=== PATIENT | female | born 1990 | race Caucasian/White ===

== ENCOUNTER 2017-05-17 20:30 | Emergency (ER) | payer BC, OTHER ==
[2017-05-17] MEDS ORDERED: Ketorolac 60 MG/2 ML SDV IM ONE (20:46)
[2017-05-17] MEDS ORDERED: Ondansetron 4 MG/2 ML SDV IM ONE (20:46)
[2017-05-17 20:48] VITALS: BP 126/70
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
== END 2017-05-17 21:44 | disposition home or self-care (01) ==
LOC: MW.ED 20:30
DX: G89.29 Other chronic pain (principal); M54.6 Pain in thoracic spine; F17.210 Nicotine dependence, cigarettes, uncomplicated; Z88.8 Allergy status to other drugs, medicaments and biological substances
CPT/HCPCS: 80305; 81001; 81025; 96372; 99283; J1885; J2405; 99282

== ENCOUNTER 2018-02-24 16:19 | Emergency (ER) | payer BC ==
[2018-02-24 16:34] VITALS: BP 121/71
--- NOTE | 2018-02-24 16:35 | EDM.PDOC ---
ED HPI GENERAL MEDICAL PROBLEM - General Chief Complaint: Abdominal Pain Stated Complaint: ABD PAIN Time Seen by Provider: 02/24/18 16:30 - History of Present Illness INITIAL COMMENTS - FREE TEXT/NARRATIVE: HISTORY AND PHYSICAL: History of present illness: Patient states 27-year-old white female history of chronic intermittent back pain who sees a chiropractor was a fairly clinic earlier and had a urinalysis that demonstrated a early infection and a negative test she left there without treatment and came here per their recommendation for further evaluation there's been no vaginal discharge or irregular bleeding no trauma no other complaints. Her abdominal pain is poorly localized and without associated fever or chills Review of systems: As per history of present illness and below otherwise all systems reviewed and negative. Past medical history: As per history of present illness and as reviewed below otherwise noncontributory. Surgical history: As per history of present illness and as reviewed below otherwise noncontributory. Social history: No reported history of drug or alcohol abuse. Family history: As per history of present illness and as reviewed below otherwise noncontributory. Physical exam: HEENT: Atraumatic, normocephalic, pupils reactive, negative for conjunctival pallor or scleral icterus, mucous membranes moist, throat clear, neck supple, nontender, trachea midline. Lungs: Clear to auscultation, breath sounds equal bilaterally, chest nontender. Heart: S1S2, regular, negative for clicks, rubs, or JVD. Abdomen: Soft, nondistended, no localized tenderness Negative for masses or hepatosplenomegaly. Negative for costovertebral tenderness. Pelvis: Stable nontender. Genitourinary: Deferred. Rectal: Deferred. Extremities: Atraumatic, negative for cords or calf pain. Neurovascular unremarkable. Neuro: Awake, alert, oriented. Cranial nerves II through XII unremarkable. Cerebellum unremarkable. Motor and sensory unremarkable throughout. Exam nonfocal. Diagnostics: CBC CMP UA hCG CT abdomen and pelvis Therapeutics: None Impression: #1 nonspecific abdominal pain #2 history of chronic back pain Definitive disposition and diagnosis as appropriate pending reevaluation and review of above. - Related Data Allergies Allergy/AdvReac Type Severity Reaction Status Date / Time sertraline [From Zoloft] Allergy Rash Verified 02/24/18 16:35 Home Meds: Home Meds Doxycycline [Doxycycline Hyclate] 50 mg PO Q12HR 02/24/18 [History] Past Medical History Musculoskeletal History: Reports: Back Pain, Chronic Social & Family History - Caffeine Use Caffeine Use: Reports: Coffee, Energy Drinks, Soda, Tea ED ROS GENERAL - Review of Systems Review Of Systems: ROS reveals no pertinent complaints other than HPI. ED EXAM, GENERAL - Physical Exam Exam: See Below (See dictation) Course - Vital Signs Last Recorded V/S: Last Vital Signs Temp 37.1 C 02/24/18 16:29 Pulse 87 02/24/18 16:29 Resp 16 02/24/18 16:29 BP 121/71 02/24/18 16:29 Pulse Ox 95 02/24/18 16:29 - Orders/Labs/Meds Orders: Active Orders 24 hr Category Date Time Status Abdomen Pelvis w wo Cont [CT] Stat Exams 02/24/18 16:37 Taken HCG QUALITATIVE,URINE [URCHEM] Stat Lab 02/24/18 16:42 Ordered HEPATITIS PANEL (4) [REF] Routine Lab 02/24/18 16:54 Received LIPASE [CHEM] Stat Lab 02/24/18 18:46 Ordered UA W/MICROSCOPIC [URIN] Stat Lab 02/24/18 16:42 Ordered HYDROmorphone [Dilaudid] Med 02/24/18 18:46 Once 1 mg IVPUSH ONETIME ONE Ondansetron [Zofran] Med 02/24/18 18:46 Once 4 mg IVPUSH ONETIME ONE Sodium Chloride 0.9% [Normal Saline] 1,000 ml Med 02/24/18 18:26 Active IV STAT Medication Orders Sodium Chloride (Normal Saline) 1,000 mls @ 999 mls/hr IV STAT ONE Stop: 02/24/18 19:26 Last Admin: 02/24/18 18:32 Dose: 999 mls/hr Labs: Laboratory Tests 02/24/18 02/24/18 02/24/18 Range/Units 16:42 16:42 16:54 WBC 5.11 (4.0-11.0) K/uL RBC 4.72 (4.30-5.90) M/uL Hgb 14.8 (12.0-16.0) g/dL Hct 42.3 (36.0-46.0) % MCV 89.6 (80.0-98.0) fL MCH 31.4 (27.0-32.0) pg MCHC 35.0 (31.0-37.0) g/dL RDW Std Deviation 40.7 (28.0-62.0) fl RDW Coeff of Tasneem 13 (11.0-15.0) % Plt Count 222 (150-400) K/uL MPV 9.80 (7.40-12.00) fL Neut % (Auto) 57.0 (48.0-80.0) % Lymph % (Auto) 30.7 (16.0-40.0) % [place] % (Auto) 7.6 (0.0-15.0) % Eos % (Auto) 4.3 (0.0-7.0) % Baso % (Auto) 0.4 (0.0-1.5) % Neut # (Auto) 2.9 (1.4-5.7) K/uL Lymph # (Auto) 1.6 (0.6-2.4) K/uL [place] # (Auto) 0.4 (0.0-0.8) K/uL Eos # (Auto) 0.2 (0.0-0.7) K/uL Baso # (Auto) 0.0 (0.0-0.1) K/uL Nucleated RBC % 0.0 /100WBC Nucleated RBCs # 0 K/uL Sodium (136-145) mmol/L Potassium (3.5-5.1) mmol/L Chloride (98-107) mmol/L Carbon Dioxide (21.0-32.0) mmol/L BUN (7.0-18.0) mg/dL Creatinine (0.6-1.0) mg/dL Est Cr Clr Drug Dosing mL/min Estimated GFR (MDRD) ml/min Glucose (74-106) mg/dL Calcium (8.5-10.1) mg/dL Total Bilirubin (0.2-1.0) mg/dL AST (15-37) IU/L ALT (14-63) IU/L Alkaline Phosphatase (46-116) U/L Total Protein (6.4-8.2) g/dL Albumin (3.4-5.0) g/dL Globulin (2.0-3.5) g/dL Albumin/Globulin Ratio (1.3-2.8) Urine Color YELLOW Urine Appearance CLEAR Urine pH 5.5 (5.0-8.0) Ur Specific [place] 1.025 (1.001-1.035) Urine Protein 30 (NEGATIVE) mg/dL Urine Glucose (UA) NEGATIVE (NEGATIVE) mg/dL Urine Ketones TRACE H (NEGATIVE) mg/dL Urine Occult Blood NEGATIVE (NEGATIVE) Urine Nitrite POSITIVE H (NEGATIVE) Urine Bilirubin LARGE H (NEGATIVE) Urine Ictotest POSITIVE Urine Urobilinogen 2.0 H (<2.0) EU/dL Ur Leukocyte Esterase TRACE (NEGATIVE) Urine RBC 0-1 (0-2/HPF) Urine WBC 1-2 (0-5/HPF) Ur Epithelial Cells OCCASIONAL (NONE-FEW) Urine Bacteria FEW (NEGATIVE) Urine HCG, Qual NEGATIVE (NEGATIVE) 02/24/18 Range/Units 16:54 WBC (4.0-11.0) K/uL RBC (4.30-5.90) M/uL Hgb (12.0-16.0) g/dL Hct (36.0-46.0) % MCV (80.0-98.0) fL MCH (27.0-32.0) pg MCHC (31.0-37.0) g/dL RDW Std Deviation (28.0-62.0) fl RDW Coeff of Tasneem (11.0-15.0) % Plt Count (150-400) K/uL MPV (7.40-12.00) fL Neut % (Auto) (48.0-80.0) % Lymph % (Auto) (16.0-40.0) % [place] % (Auto) (0.0-15.0) % Eos % (Auto) (0.0-7.0) % Baso % (Auto) (0.0-1.5) % Neut # (Auto) (1.4-5.7) K/uL Lymph # (Auto) (0.6-2.4) K/uL [place] # (Auto) (0.0-0.8) K/uL Eos # (Auto) (0.0-0.7) K/uL Baso # (Auto) (0.0-0.1) K/uL Nucleated RBC % /100WBC Nucleated RBCs # K/uL Sodium 139 (136-145) mmol/L Potassium 3.9 (3.5-5.1) mmol/L Chloride 103 (98-107) mmol/L Carbon Dioxide 25.2 (21.0-32.0) mmol/L BUN 14 (7.0-18.0) mg/dL Creatinine 0.8 (0.6-1.0) mg/dL Est Cr Clr Drug Dosing 96.73 mL/min Estimated GFR (MDRD) > 60.0 ml/min Glucose 107 H (74-106) mg/dL Calcium 8.6 (8.5-10.1) mg/dL Total Bilirubin 3.3 H (0.2-1.0) mg/dL AST 814 H (15-37) IU/L ALT 1215 H (14-63) IU/L Alkaline Phosphatase 252 H (46-116) U/L Total Protein 7.3 (6.4-8.2) g/dL Albumin 4.0 (3.4-5.0) g/dL Globulin 3.3 (2.0-3.5) g/dL Albumin/Globulin Ratio 1.2 L (1.3-2.8) Urine Color Urine Appearance Urine pH (5.0-8.0) Ur Specific [place] (1.001-1.035) Urine Protein (NEGATIVE) mg/dL Urine Glucose (UA) (NEGATIVE) mg/dL Urine Ketones (NEGATIVE) mg/dL Urine Occult Blood (NEGATIVE) Urine Nitrite (NEGATIVE) Urine Bilirubin (NEGATIVE) Urine Ictotest Urine Urobilinogen (<2.0) EU/dL Ur Leukocyte Esterase (NEGATIVE) Urine RBC (0-2/HPF) Urine WBC (0-5/HPF) Ur Epithelial Cells (NONE-FEW) Urine Bacteria (NEGATIVE) Urine HCG, Qual (NEGATIVE) Meds: Medications Generic Name Dose Route Start Last Admin Trade Name Freq PRN Reason Stop Dose Admin Sodium Chloride 1,000 mls @ 999 mls/hr 02/24/18 18:26 02/24/18 18:32 Normal Saline IV 02/24/18 19:26 999 mls/hr STAT ONE Administration Discontinued Medications Generic Name Dose Route Start Last Admin Trade Name Freq PRN Reason Stop Dose Admin Iopamidol 100 ml 02/24/18 17:57 02/24/18 18:00 Isovue Multipack-370 (76%) IVPUSH 02/24/18 17:58 100 ml ONETIME STA Administration Departure - Departure Time of Disposition: 18:47 Disposition: Home, Self-Care 01 Condition: Good Clinical Impression: Pancreatitis, Abdominal pain, Elevated levels of transaminase & lactic acid dehydrogenase - Discharge Information Referrals: PCP,None [Primary Care Provider] - Forms: ED Department Discharge - My Orders Last 24 Hours: My Active Orders 02/24/18 16:37 Abdomen Pelvis w wo Cont [CT] Stat 02/24/18 16:42 HCG QUALITATIVE,URINE [URCHEM] Stat UA W/MICROSCOPIC [URIN] Stat 02/24/18 16:54 HEPATITIS PANEL (4) [REF] Routine 02/24/18 18:26 Sodium Chloride 0.9% [Normal Saline] 1,000 ml IV STAT 02/24/18 18:46 LIPASE [CHEM] Stat HYDROmorphone [Dilaudid] 1 mg IVPUSH ONETIME ONE Ondansetron [Zofran] 4 mg IVPUSH ONETIME ONE - Assessment/Plan Last 24 Hours: My Active Orders 02/24/18 16:37 Abdomen Pelvis w wo Cont [CT] Stat 02/24/18 16:42 HCG QUALITATIVE,URINE [URCHEM] Stat UA W/MICROSCOPIC [URIN] Stat 02/24/18 16:54 HEPATITIS PANEL (4) [REF] Routine 02/24/18 18:26 Sodium Chloride 0.9% [Normal Saline] 1,000 ml IV STAT 02/24/18 18:46 LIPASE [CHEM] Stat HYDROmorphone [Dilaudid] 1 mg IVPUSH ONETIME ONE Ondansetron [Zofran] 4 mg IVPUSH ONETIME ONE
[2018-02-24 17:36] LABS: CHLORIDE,CL 103 mmol/L (98-107); SODIUM,NA 139 mmol/L (136-145)
[2018-02-24] MEDS ORDERED: Iopamidol 755 MG/ML 500 ML Multipack Bottle IVPUSH STA (17:57)
[2018-02-24] MEDS ORDERED: Sodium Chloride 0.9% 1,000 ML IV ONE (18:26)
[2018-02-24] MEDS ORDERED: HYDROmorphone 2 MG/ML Syringe IVPUSH ONE (18:46)
[2018-02-24] MEDS ORDERED: Ondansetron 4 MG/2 ML SDV IVPUSH ONE (18:46)
[2018-02-24] MEDS ORDERED: HYDROmorphone 1 MG/ML Syringe ONE (18:55)
--- NOTE | 2018-02-27 10:46 | CT ---
EXAM DATE: 02/24/18 PATIENT'S AGE: 27 Patient: PATRICK GAITAN Facility: [place], [place] Site . Site : 1990 Study: CT Abdomen/Pelvis [id number]/8/2018 6:10:24 PM Ordering Physician: Ivette Thorpe Final Report: INDICATION: Pain and vomiting TECHNIQUE: CT abdomen and pelvis with and without contrast. COMPARISON: None FINDINGS: Lower chest: Unremarkable. Liver: Unremarkable. Spleen: Unremarkable. Pancreas: Peripancreatic fat stranding. Correlate with abnormal amylase and lipase. Gallbladder and bile ducts: Gallbladder is distended with sludge and possible stones with pericholecystic fluid. Correlate with right upper quadrant pain. Kidneys: Punctate nonobstructing calculus in the distal right kidney. No hydronephrosis. Adrenal glands: Unremarkable. GI tract: Unremarkable. Appendix is not definitively demonstrated. Vascular structures: Unremarkable. Lymph nodes: Unremarkable. The free fluid in the right pericolic gutter, right upper quadrant and pelvis. Oral or significant free fluid. Pelvic Organs: IUD identified in the endometrial canal. Bones: Unremarkable for age. IMPRESSION: Peripancreatic fat stranding. Correlate with abnormal amylase and lipase for pancreatitis. The gallbladder is distended with sludge and possible stones with adjacent fluid. Right upper quadrant asymmetry helpful to further characterize if clinically warranted. IUD identified in the endometrial canal. Punctate calculus in the distal right kidney. No evidence for hydronephrosis or hydroureter. Dictated by Torsten Severino MD @ 02/24/2018 6:44:16 PM Dictated by: Torsten Severino MD @ 02/24/2018 18:44:35 (Electronic Signature) Report Signed by Proxy. [facility]
== END 2018-02-24 19:57 | disposition home or self-care (01) ==
LOC: MW.ED 16:19
DX: K85.90 Acute pancreatitis without necrosis or infection, unspecified (principal); R74.0 Nonspecific elevation of levels of transaminase and lactic acid dehydrogenase [LDH]; Z79.899 Other long term (current) drug therapy; Z88.8 Allergy status to other drugs, medicaments and biological substances
CPT/HCPCS: 36415; 74178; 80053; 80074; 81001; 81025; 83690; 85025; 96361; 96374; 96375; 99284; J1170; J2405; J7040; Q9967; 99283

== ENCOUNTER 2018-03-08 12:46 | Emergency (ER) | payer BC ==
[2018-03-08] MEDS ORDERED: Sodium Chloride 0.9% 2.5 ML Syringe FLUSH PRN (13:03)
[2018-03-08] MEDS ORDERED: Morphine 2 MG/ML Syringe IVPUSH ONE (13:03)
[2018-03-08] MEDS ORDERED: Ondansetron 4 MG/2 ML SDV IVPUSH ONE (13:03)
[2018-03-08] MEDS ORDERED: Sodium Chloride 0.9% 10 ML Syringe FLUSH PRN (13:03)
--- NOTE | 2018-03-08 13:08 | EDM.PDOC ---
<Sanjana Yadav - Last Filed: 03/08/18 14:46> ED HPI GENERAL MEDICAL PROBLEM - General Chief Complaint: Back Pain or Injury Stated Complaint: BACK PAIN Time Seen by Provider: 03/08/18 13:04 Source of Information: Reports: Patient, Family History Limitations: Reports: No Limitations - History of Present Illness INITIAL COMMENTS - FREE TEXT/NARRATIVE: HISTORY AND PHYSICAL: []27-year-old female presenting with back pain similar to her pancreatitis pain History of Present Illness: []Patient had surgery one week ago with her gallbladder removed and stent placement. Surgeon was Dr. Ronaldo Farr , this marked [place] at [facility]. She has a follow-up appointment in one week . Patient took hydrocodone prior to coming/2 hours ago Patient did clean her whole house yesterday and was quite active Review of Systems: As per history of present illness and below otherwise all systems reviewed and negative. Past medical history: As per history of present illness and as reviewed below otherwise noncontributory. Surgical history: As per history of present illness and as reviewed below otherwise noncontributory. Social history: No reported history of drug or alcohol abuse. Family history: As per history of present illness and as reviewed below otherwise noncontributory. Physical exam: Alert and oriented female answering questions appropriately in full sentences without any shortness of breath nontoxic in appearance. HEENT: Atraumatic, normocehpalic, pupils reactive, negative for conjunctival pallor or scleral icterus, mucous membranes moist, throat clear, neck supple, nontender, trachea midline. Lungs: Clear to auscultation, breath sounds equal bilaterally, chest non tender. Heart: S1S2, regular, negative for clicks, rubs, or JVD. Abdomen: Soft, nondistended, nontender. Negative for masses or hepatossplenmegaly. Negative for costovertebral tenderness. Pelvis: Stable nontender. Genitourinary: Deferred. Rectal: Deferred Extremities: Atraumatic, negative for cords or calf pain. Neurovascular unremarkable. Neuro: Awake, alert, oriented. Cranial nerves II through XII unremarkable. Cerebellum unremarkable. Motor and sensory unremarkable throughout. Exam nonfocal. Patient and friend were divided the negative results Diagnostics: [] CT abdomen CBC CMP amylase lipase Therapeutics: []Morphine IV 2 mg Zofran 4 mg IV Impression: []Postoperative pain Plan: []Discharge home Follow up with your appointment next week as previously scheduled Definitive disposition and diagnosis as appropriate pending reevaluation and review of above. Onset: Today, Sudden Duration: Hour(s): Right Upper Abdominal Pain Score (Numeric/FACES): 7 - Related Data Allergies Allergy/AdvReac Type Severity Reaction Status Date / Time sertraline [From Zoloft] Allergy Rash Verified 03/08/18 12:57 Home Meds: Home Meds Acetaminophen/HYDROcodone [Benjamin 325-5 MG] 1 - 2 tab PO Q4H PRN 03/08/18 [ History] Past Medical History - Past Health History Medical/Surgical History: Denies Medical/Surgical History Gastrointestinal History: Reports: Pancreatitis Musculoskeletal History: Reports: Back Pain, Chronic - Infectious Disease History Infectious Disease History: Reports: Chicken Pox - Past Surgical History GI Surgical History: Reports: Cholecystectomy, Other (See Below) Other GI Surgeries/Procedures: CBD stent Social & Family History - Family History Family Medical History: Noncontributory - Tobacco Use Smoking Status *Q: Light Tobacco Smoker Years of Tobacco use: 4 Packs/Tins Daily: 0.1 - Caffeine Use Caffeine Use: Reports: Coffee, Energy Drinks, Soda, Tea - Recreational Drug Use Recreational Drug Use: No ED ROS GENERAL - Review of Systems Review Of Systems: ROS reveals no pertinent complaints other than HPI. ED EXAM,LOWER BACK PAIN/INJURY - Physical Exam Exam: See Below (see dictation) Course - Vital Signs Last Recorded V/S: Last Vital Signs Temp 36.6 C 03/08/18 12:53 Pulse 76 03/08/18 15:00 Resp 16 03/08/18 15:00 BP 112/72 03/08/18 15:00 Pulse Ox 98 03/08/18 15:00 - Orders/Labs/Meds Orders: Active Orders 24 hr Category Date Time Status Saline Lock Insert [OM.PC] Stat Oth 03/08/18 13:03 Ordered Labs: Laboratory Tests 03/08/18 03/08/18 Range/Units 13:07 13:07 WBC 4.95 (4.0-11.0) K/uL RBC 4.65 (4.30-5.90) M/uL Hgb 14.7 (12.0-16.0) g/dL Hct 41.3 (36.0-46.0) % MCV 88.8 (80.0-98.0) fL MCH 31.6 (27.0-32.0) pg MCHC 35.6 (31.0-37.0) g/dL RDW Std Deviation 39.4 (28.0-62.0) fl RDW Coeff of Tasneem 12 (11.0-15.0) % Plt Count 330 (150-400) K/uL MPV 9.70 (7.40-12.00) fL Neut % (Auto) 47.0 L (48.0-80.0) % Lymph % (Auto) 35.4 (16.0-40.0) % [place] % (Auto) 7.5 (0.0-15.0) % Eos % (Auto) 9.3 H (0.0-7.0) % Baso % (Auto) 0.8 (0.0-1.5) % Neut # (Auto) 2.3 (1.4-5.7) K/uL Lymph # (Auto) 1.8 (0.6-2.4) K/uL [place] # (Auto) 0.4 (0.0-0.8) K/uL Eos # (Auto) 0.5 (0.0-0.7) K/uL Baso # (Auto) 0.0 (0.0-0.1) K/uL Nucleated RBC % 0.0 /100WBC Nucleated RBCs # 0 K/uL Sodium 138 (136-145) mmol/L Potassium 3.9 (3.5-5.1) mmol/L Chloride 101 (98-107) mmol/L Carbon Dioxide 26.4 (21.0-32.0) mmol/L BUN 16 (7.0-18.0) mg/dL Creatinine 0.8 (0.6-1.0) mg/dL Est Cr Clr Drug Dosing 96.73 mL/min Estimated GFR (MDRD) > 60.0 ml/min Glucose 118 H (74-106) mg/dL Calcium 9.3 (8.5-10.1) mg/dL Total Bilirubin 0.4 (0.2-1.0) mg/dL AST 46 H (15-37) IU/L ALT 112 H (14-63) IU/L Alkaline Phosphatase 195 H (46-116) U/L Total Protein 8.7 H (6.4-8.2) g/dL Albumin 4.2 (3.4-5.0) g/dL Globulin 4.5 H (2.0-3.5) g/dL Albumin/Globulin Ratio 0.9 L (1.3-2.8) Amylase 71 (25-115) U/L Lipase 384 (73-393) U/L Meds: Medications Discontinued Medications Generic Name Dose Route Start Last Admin Trade Name Freq PRN Reason Stop Dose Admin Iopamidol 92 ml 03/08/18 14:09 03/08/18 14:11 Isovue Multipack-370 (76%) IVPUSH 03/08/18 14:10 92 ml ONETIME STA Administration Morphine Sulfate 2 mg 03/08/18 13:03 03/08/18 13:10 Morphine IVPUSH 03/08/18 13:04 2 mg ONETIME ONE Administration Ondansetron HCl 4 mg 03/08/18 13:03 03/08/18 13:11 Zofran IVPUSH 03/08/18 13:04 4 mg ONETIME ONE Administration Sodium Chloride 10 ml 03/08/18 13:03 Saline Flush FLUSH ASDIRECTED PRN Keep Vein Open Sodium Chloride 2.5 ml 03/08/18 13:03 Saline Flush FLUSH ASDIRECTED PRN Keep Vein Open Departure - Departure Time of Disposition: 14:47 Disposition: Home, Self-Care 01 Condition: Good Clinical Impression: Postoperative abdominal pain - Discharge Information Instructions: Pain Relief Preoperatively and Postoperatively, Pain Medicine Instructions, [id number] Referrals: Edwardo Ramirez MD [Primary Care Provider] - Forms: ED Department Discharge Additional Instructions: The following information is given to patients seen in the emergency department who are being discharged to home. This information is to outline your options for follow-up care. We provide all patients seen in our emergency department with a follow-up referral. The need for follow-up, as well as the timing and circumstances, are variable depending upon the specifics of your emergency department visit. If you don't have a primary care physician on staff, we will provide you with a referral. We always advise you to contact your personal physician following an emergency department visit to inform them of the circumstance of the visit and for follow-up with them and/or the need for any referrals to a consulting specialist. The emergency department will also refer you to a specialist when appropriate. This referral assures that you have the opportunity for followup care with a specialist. All of these measure are taken in an effort to provide you with optimal care, which includes your followup. Under all circumstances we always encourage you to contact your private physician who remains a resource for coordinating your care. When calling for followup care, please make the office aware that this follow-up is from your recent emergency room visit. If for any reason you are refused follow-up, please contact the [facility] emergency department at and asked to speak to the emergency department charge nurse. Follow-up with your surgeon Dr. Ronaldo Farr in [place] at the [facility] next week as previously scheduled Take your medication as has been prescribed <Roberta Madsen - Last Filed: 03/08/18 18:42> ED HPI GENERAL MEDICAL PROBLEM - History of Present Illness INITIAL COMMENTS - FREE TEXT/NARRATIVE: Please note that the nurse for Dr. Farr was contacted by Sanjana and she will pass on to him that the patient was in our ED and evaluated. Labs and CT scan were faxed to his office. The patient has a scheduled follow-up appointment which she was advised to keep.
[2018-03-08 13:52] LABS: CHLORIDE,CL 101 mmol/L (98-107); SODIUM,NA 138 mmol/L (136-145)
[2018-03-08] MEDS ORDERED: Iopamidol 755 MG/ML 500 ML Multipack Bottle IVPUSH STA (14:09)
--- NOTE | 2018-03-08 14:33 | CT ---
CT of the abdomen and pelvis with contrast. HISTORY: Pain TECHNIQUE: Axial CT images were obtained of the abdomen and pelvis following administration of 100 mL of Isovue-370 in the left antecubital fossa without complication. Coronal and sagittal reconstructio ns obtained. FINDINGS: The lung bases are clear, no pleural effusion. The liver, spleen, and adrenal glands appear normal. The pancreas is normal. There is a small amount of debris and fluid within the gallbladder fossa likely secondary to recent cholecystectomy. There is a stent within the common bile duct with a small amount of pneumobilia. No bulky retroperitoneal lym phadenopathy or abdominal ascites. The kidneys enhance and function symmetrically without evidence of obstructive uropathy. Punctate non obstructing right renal stone. The large and small bowel are normal in caliber without evidence of obstruction. Urinary bladder is m ostly decompressed. There is an IUD within the uterus. No pelvic lymphadenopathy or free pelvic fluid . No suspicious osseous abnormalities identified. Stranding along the ventral abdomen likely secondar y to port placement. Tiny ovarian cysts/follicles. No suspicious osseous abnormalities identified. IMPRESSION: 1. Small amount of residual debris within the gallbladder fossa, likely postsurgical in nature. 2. There is a stent within the common bile duct small amount of pneumobilia. 3. Otherwise no acute findings within the abdomen or pelvis.
[2018-03-08 15:05] VITALS: BP 112/72
== END 2018-03-08 15:01 | disposition home or self-care (01) ==
LOC: MW.ED 12:46
DX: G89.18 Other acute postprocedural pain (principal); R10.9 Unspecified abdominal pain; F17.210 Nicotine dependence, cigarettes, uncomplicated; Z88.8 Allergy status to other drugs, medicaments and biological substances; Z98.890 Other specified postprocedural states
CPT/HCPCS: 36415; 74177; 80053; 82150; 83690; 85025; 96374; 96375; 99284; J2270; J2405; Q9967; 99283

== ENCOUNTER 2018-03-27 23:21 | Emergency (ER) | payer BC ==
--- NOTE | 2018-03-27 23:58 | EDM.PDOC ---
ED HPI GENERAL MEDICAL PROBLEM - General Chief Complaint: Abdominal Pain Stated Complaint: ABDOMINAL PAIN Time Seen by Provider: 03/27/18 23:57 - History of Present Illness INITIAL COMMENTS - FREE TEXT/NARRATIVE: HISTORY AND PHYSICAL: History of present illness: Patient is a 27-year-old female is one month status post cholecystectomy which she had complicated gallstone pancreatitis who present one week prior had a percutaneous drain removed comes in with some coughing recent cold symptoms and now right upper quadrant pain after coughing. No fever chills nausea vomiting or other complaints Review of systems: As per history of present illness and below otherwise all systems reviewed and negative. Past medical history: As per history of present illness and as reviewed below otherwise noncontributory. Surgical history: As per history of present illness and as reviewed below otherwise noncontributory. Social history: No reported history of drug or alcohol abuse. Family history: As per history of present illness and as reviewed below otherwise noncontributory. Physical exam: HEENT: Atraumatic, normocephalic, pupils reactive, negative for conjunctival pallor or scleral icterus, mucous membranes moist, throat clear, neck supple, nontender, trachea midline. Lungs: Clear to auscultation, breath sounds equal bilaterally, chest nontender. Heart: S1S2, regular, negative for clicks, rubs, or JVD. Abdomen: Soft, nondistended, nontender. Negative for masses or hepatosplenomegaly. Negative for costovertebral tenderness. Pelvis: Stable nontender. Genitourinary: Deferred. Rectal: Deferred. Extremities: Atraumatic, negative for cords or calf pain. Neurovascular unremarkable. Neuro: Awake, alert, oriented. Cranial nerves II through XII unremarkable. Cerebellum unremarkable. Motor and sensory unremarkable throughout. Exam nonfocal. Diagnostics: CBC CMP chest x-ray UA hCG Therapeutics: Saline lock Impression: #1 medical screening exam #2 tracheobronchitis #3 postoperative abdominal pain Definitive disposition and diagnosis as appropriate pending reevaluation and review of above. RUQ Abd Pain Score (Numeric/FACES): 5 - Related Data Allergies Allergy/AdvReac Type Severity Reaction Status Date / Time sertraline [From Zoloft] Allergy Rash Verified 03/27/18 23:31 Home Meds: Home Meds . [No Known Home Meds] 03/27/18 [History] Past Medical History - Past Health History Medical/Surgical History: Denies Medical/Surgical History Gastrointestinal History: Reports: Pancreatitis Musculoskeletal History: Reports: Back Pain, Chronic - Infectious Disease History Infectious Disease History: Reports: Chicken Pox - Past Surgical History GI Surgical History: Reports: Cholecystectomy, Other (See Below) Other GI Surgeries/Procedures: CBD stent Social & Family History - Family History Family Medical History: Noncontributory - Tobacco Use Smoking Status *Q: Current Some Day Smoker Years of Tobacco use: 4 Packs/Tins Daily: 0.1 - Caffeine Use Caffeine Use: Reports: Coffee, Energy Drinks, Soda, Tea - Recreational Drug Use Recreational Drug Use: Yes Drug Use in Last 12 Months: No ED ROS GENERAL - Review of Systems Review Of Systems: ROS reveals no pertinent complaints other than HPI. ED EXAM, GENERAL - Physical Exam Exam: See Below (See dictation) Course - Vital Signs Last Recorded V/S: Last Vital Signs Temp 36.8 C 03/27/18 23:29 Pulse 93 03/27/18 23:29 Resp 12 03/27/18 23:29 BP 124/77 03/27/18 23:29 Pulse Ox 97 03/27/18 23:29 - Orders/Labs/Meds Orders: Active Orders 24 hr Category Date Time Status Chest 2V [CR] Stat Exams 03/27/18 23:34 Taken HCG QUALITATIVE,URINE [URCHEM] Stat Lab 03/27/18 23:36 Ordered UA W/MICROSCOPIC [URIN] Stat Lab 03/27/18 23:36 Ordered Labs: Laboratory Tests 03/27/18 03/27/18 03/27/18 Range/Units 11:43 11:43 23:36 WBC 6.40 (4.0-11.0) K/uL RBC 4.33 (4.30-5.90) M/uL Hgb 13.4 (12.0-16.0) g/dL Hct 38.0 (36.0-46.0) % MCV 87.8 (80.0-98.0) fL MCH 30.9 (27.0-32.0) pg MCHC 35.3 (31.0-37.0) g/dL RDW Std Deviation 40.1 (28.0-62.0) fl RDW Coeff of Tasneem 12 (11.0-15.0) % Plt Count 218 (150-400) K/uL MPV 9.90 (7.40-12.00) fL Neut % (Auto) 46.9 L (48.0-80.0) % Lymph % (Auto) 34.2 (16.0-40.0) % [place] % (Auto) 12.3 (0.0-15.0) % Eos % (Auto) 6.3 (0.0-7.0) % Baso % (Auto) 0.3 (0.0-1.5) % Neut # (Auto) 3.0 (1.4-5.7) K/uL Lymph # (Auto) 2.2 (0.6-2.4) K/uL [place] # (Auto) 0.8 (0.0-0.8) K/uL Eos # (Auto) 0.4 (0.0-0.7) K/uL Baso # (Auto) 0.0 (0.0-0.1) K/uL Nucleated RBC % 0.0 /100WBC Nucleated RBCs # 0 K/uL Sodium 138 (136-145) mmol/L Potassium 3.6 (3.5-5.1) mmol/L Chloride 103 (98-107) mmol/L Carbon Dioxide 26.2 (21.0-32.0) mmol/L BUN 21 H (7.0-18.0) mg/dL Creatinine 0.8 (0.6-1.0) mg/dL Est Cr Clr Drug Dosing 96.73 mL/min Estimated GFR (MDRD) > 60.0 ml/min Glucose 100 (74-106) mg/dL Calcium 8.4 L (8.5-10.1) mg/dL Total Bilirubin 0.2 (0.2-1.0) mg/dL AST 20 (15-37) IU/L ALT 33 (14-63) IU/L Alkaline Phosphatase 103 (46-116) U/L Total Protein 7.4 (6.4-8.2) g/dL Albumin 3.6 (3.4-5.0) g/dL Globulin 3.8 H (2.0-3.5) g/dL Albumin/Globulin Ratio 1.0 L (1.3-2.8) Lipase (73-393) U/L Urine Color YELLOW Urine Appearance CLEAR Urine pH 6.5 (5.0-8.0) Ur Specific [place] 1.025 (1.001-1.035) Urine Protein NEGATIVE (NEGATIVE) mg/dL Urine Glucose (UA) NEGATIVE (NEGATIVE) mg/dL Urine Ketones NEGATIVE (NEGATIVE) mg/dL Urine Occult Blood NEGATIVE (NEGATIVE) Urine Nitrite NEGATIVE (NEGATIVE) Urine Bilirubin NEGATIVE (NEGATIVE) Urine Urobilinogen 0.2 (<2.0) EU/dL Ur Leukocyte Esterase NEGATIVE (NEGATIVE) Urine RBC 0-2 (0-2/HPF) Urine WBC 1-3 (0-5/HPF) Ur Epithelial Cells FEW (NONE-FEW) Urine Bacteria FEW (NEGATIVE) Urine HCG, Qual (NEGATIVE) 03/27/18 03/27/18 Range/Units 23:36 23:59 WBC (4.0-11.0) K/uL RBC (4.30-5.90) M/uL Hgb (12.0-16.0) g/dL Hct (36.0-46.0) % MCV (80.0-98.0) fL MCH (27.0-32.0) pg MCHC (31.0-37.0) g/dL RDW Std Deviation (28.0-62.0) fl RDW Coeff of Tasneem (11.0-15.0) % Plt Count (150-400) K/uL MPV (7.40-12.00) fL Neut % (Auto) (48.0-80.0) % Lymph % (Auto) (16.0-40.0) % [place] % (Auto) (0.0-15.0) % Eos % (Auto) (0.0-7.0) % Baso % (Auto) (0.0-1.5) % Neut # (Auto) (1.4-5.7) K/uL Lymph # (Auto) (0.6-2.4) K/uL [place] # (Auto) (0.0-0.8) K/uL Eos # (Auto) (0.0-0.7) K/uL Baso # (Auto) (0.0-0.1) K/uL Nucleated RBC % /100WBC Nucleated RBCs # K/uL Sodium (136-145) mmol/L Potassium (3.5-5.1) mmol/L Chloride (98-107) mmol/L Carbon Dioxide (21.0-32.0) mmol/L BUN (7.0-18.0) mg/dL Creatinine (0.6-1.0) mg/dL Est Cr Clr Drug Dosing mL/min Estimated GFR (MDRD) ml/min Glucose (74-106) mg/dL Calcium (8.5-10.1) mg/dL Total Bilirubin (0.2-1.0) mg/dL AST (15-37) IU/L ALT (14-63) IU/L Alkaline Phosphatase (46-116) U/L Total Protein (6.4-8.2) g/dL Albumin (3.4-5.0) g/dL Globulin (2.0-3.5) g/dL Albumin/Globulin Ratio (1.3-2.8) Lipase 421 H (73-393) U/L Urine Color Urine Appearance Urine pH (5.0-8.0) Ur Specific [place] (1.001-1.035) Urine Protein (NEGATIVE) mg/dL Urine Glucose (UA) (NEGATIVE) mg/dL Urine Ketones (NEGATIVE) mg/dL Urine Occult Blood (NEGATIVE) Urine Nitrite (NEGATIVE) Urine Bilirubin (NEGATIVE) Urine Urobilinogen (<2.0) EU/dL Ur Leukocyte Esterase (NEGATIVE) Urine RBC (0-2/HPF) Urine WBC (0-5/HPF) Ur Epithelial Cells (NONE-FEW) Urine Bacteria (NEGATIVE) Urine HCG, Qual NEGATIVE (NEGATIVE) Departure - Departure Time of Disposition: 00:54 Disposition: Home, Self-Care 01 Condition: Good Clinical Impression: Tracheobronchitis, Serum lipase elevation - Discharge Information Referrals: PCP,None [Primary Care Provider] - Forms: ED Department Discharge Additional Instructions: The following information is given to patients seen in the emergency department who are being discharged to home. This information is to outline your options for follow-up care. We provide all patients seen in our emergency department with a follow-up referral. The need for follow-up, as well as the timing and circumstances, are variable depending upon the specifics of your emergency department visit. If you don't have a primary care physician on staff, we will provide you with a referral. We always advise you to contact your personal physician following an emergency department visit to inform them of the circumstance of the visit and for follow-up with them and/or the need for any referrals to a consulting specialist. The emergency department will also refer you to a specialist when appropriate. This referral assures that you have the opportunity for followup care with a specialist. All of these measure are taken in an effort to provide you with optimal care, which includes your followup. Under all circumstances we always encourage you to contact your private physician who remains a resource for coordinating your care. When calling for followup care, please make the office aware that this follow-up is from your recent emergency room visit. If for any reason you are refused follow-up, please contact the [facility] emergency department at and asked to speak to the emergency department charge nurse. [facility] [address] [place] [id number] Albuterol as prescribed follow-up clinic above call to schedule routine appointment and return as needed as discussed - My Orders Last 24 Hours: My Active Orders 03/27/18 23:34 Chest 2V [CR] Stat 03/27/18 23:36 HCG QUALITATIVE,URINE [URCHEM] Stat UA W/MICROSCOPIC [URIN] Stat - Assessment/Plan Last 24 Hours: My Active Orders 03/27/18 23:34 Chest 2V [CR] Stat 03/27/18 23:36 HCG QUALITATIVE,URINE [URCHEM] Stat UA W/MICROSCOPIC [URIN] Stat
[2018-03-28 00:06] LABS: CHLORIDE,CL 103 mmol/L (98-107); SODIUM,NA 138 mmol/L (136-145)
[2018-03-28] MEDS ORDERED: Albuterol/Ipratropium 3.0-0.5 MG/3 ML Neb Soln NEB ONE (00:55)
[2018-03-28 01:18] VITALS: BP 100/62
--- NOTE | 2018-03-28 16:46 | CR ---
EXAM DATE: 03/27/18 PATIENT'S AGE: 27 Patient: PATRICK GAITAN Facility: [place], [place] Site . Site : 1990 Study: XRay Chest [id number] 11:56:00 PM Ordering Physician: Doctor Ahmadi Final Report: INDICATION: chest discomfort when coughing TECHNIQUE: Chest radiograph 2 views COMPARISON: None FINDINGS: Mediastinum: The mediastinum is normal in appearance. The heart silhouette is normal in size and morphology. Lungs: Both lungs are unremarkable in appearance. No sign of pleural effusion seen. No pneumothorax is identified. Bones and soft tissue: Unremarkable for age. IMPRESSION: 1. No acute cardiopulmonary disease is seen. Dictated by: Jeremias Gordon MD @ 03/27/2018 23:57:26 (Electronic Signature) MTDD
== END 2018-03-28 01:15 | disposition home or self-care (01) ==
LOC: MW.ED 23:21
DX: J40 Bronchitis, not specified as acute or chronic (principal); R79.89 Other specified abnormal findings of blood chemistry; G89.18 Other acute postprocedural pain; R10.11 Right upper quadrant pain; Z88.8 Allergy status to other drugs, medicaments and biological substances
CPT/HCPCS: 36415; 71046; 71046-26; 80053; 81001; 81025; 83690; 85025; 94640; 99284-25

== ENCOUNTER 2019-08-24 14:39 | Emergency (ER) | payer BC, OTHER ==
--- NOTE | 2019-08-24 14:48 | EDM.PDOC ---
ED HPI GENERAL MEDICAL PROBLEM - General Chief Complaint: General Stated Complaint: [employer] Time Seen by Provider: 08/24/19 14:42 Source of Information: Reports: Patient History Limitations: Reports: No Limitations - History of Present Illness INITIAL COMMENTS - FREE TEXT/NARRATIVE: HISTORY AND PHYSICAL: History of present illness: Patient is a 28-year-old female who presents to our emergency room with concerns of possible exposure to body fluids or blood after receiving and abrasion from a broken bottle. 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 The trash had brushed up against her leg resulting in the laceration. She states she cleaned the area well and has no concerns of laceration related infection. She states her employer was concerned of possible blood related exposures. Tdap is UTD. Review of systems: As per history of present illness and below otherwise all systems reviewed and negative. Past medical history: As per history of present illness and as reviewed below otherwise noncontributory. Surgical history: As per history of present illness and as reviewed below otherwise noncontributory. Social history: See social history for further information Family history: As per history of present illness and as reviewed below otherwise noncontributory. Physical exam: General: Well-developed and well-nourished 28 year old female. Alert and oriented. Nontoxic appearing and in no acute distress. HEENT: Atraumatic, normocephalic, pupils equal and reactive bilaterally, negative for conjunctival pallor or scleral icterus, mucous membranes moist, trachea midline. No drooling or trismus noted. No meningeal signs. No hot potato voice noted. Lungs: Clear to auscultation, breath sounds equal bilaterally, chest nontender. Heart: S1S2, regular rate and rhythm without overt murmur Abdomen: Soft, nondistended, nontender. Negative for masses or costovertebral tenderness. Skin: 2 cm linear superficial laceration to the right anterior mid thigh. Otherwise skin is intact, warm, dry. No lesions or rashes noted. Extremities: Atraumatic, moves all extremities per self without difficulty or deficits, negative for cords or calf pain. Neurovascular unremarkable. Neuro: Awake, alert, oriented. Cranial nerves II through XII unremarkable. Cerebellum unremarkable. Motor and sensory unremarkable throughout. Exam nonfocal. Patient states she initially presented to the clinic who recommended she come to the emergency room to be checked for blood borne diseases. We discussed the likelihood of this occurring which are minimal due to the very superficial laceration. She states she is very concerned after the conversation she had. We' ll do an exposure panel which is a send out, patient is aware. Supportive care measures were reviewed and discussed. Voices understanding and is agreeable to plan of care. Denies any further questions or concerns at this time. Diagnostics: Exposure panel Therapeutics: Wound care Prescription: None Impression: Encounter for medical screening exam Possible body fluid or blood exposure Plan: 1. Keep the abrasion clean and dry. Continue to monitor for signs of infection. Use Bacitracin ointment as needed 2. Tylenol and/or ibuprofen as needed for pain. 3. Follow-up with your primary care provider as we discussed. Return to the ED as needed and as discussed. Definitive disposition and diagnosis as appropriate pending reevaluation and review of above. - Related Data Allergies Allergy/AdvReac Type Severity Reaction Status Date / Time sertraline [From Zoloft] Allergy Rash Verified 08/24/19 14:53 Home Meds: Home Meds . [No Known Home Meds] 03/27/18 [History] Past Medical History - Past Health History Medical/Surgical History: Denies Medical/Surgical History Gastrointestinal History: Reports: Pancreatitis Musculoskeletal History: Reports: Back Pain, Chronic - Infectious Disease History Infectious Disease History: Reports: Chicken Pox - Past Surgical History GI Surgical History: Reports: Cholecystectomy, Other (See Below) Other GI Surgeries/Procedures: CBD stent Social & Family History - Family History Family Medical History: Noncontributory - Caffeine Use Caffeine Use: Reports: Coffee, Energy Drinks, Soda, Tea ED ROS GENERAL - Review of Systems Review Of Systems: Comprehensive ROS is negative, except as noted in HPI. ED EXAM, GENERAL - Physical Exam Exam: See Below (See dictation) Course - Orders/Labs/Meds Orders: Active Orders 24 hr Category Date Time Status HEPATITIS B SURFACE AB QUANT [CHEM] Routine Lab 08/24/19 14:48 Ordered HEPATITIS B SURFACE AG [CHEM] Routine Lab 08/24/19 14:48 Ordered HEPATITIS C ANTIBODY [CHEM] Routine Lab 08/24/19 14:48 Ordered HIV12 AG/AB 4TH GEN [CHEM] Routine Lab 08/24/19 14:48 Ordered Departure - Departure Time of Disposition: 14:53 Disposition: Home, Self-Care 01 Clinical Impression: Encounter for medical screening examination, Exposure to blood or body fluid - Discharge Information Referrals: PCP,None [Primary Care Provider] - Forms: ED Department Discharge Additional Instructions: The following information is given to patients seen in the emergency department who are being discharged to home. This information is to outline your options for follow-up care. We provide all patients seen in our emergency department with a follow-up referral. The need for follow-up, as well as the timing and circumstances, are variable depending upon the specifics of your emergency department visit. If you don't have a primary care physician on staff, we will provide you with a referral. We always advise you to contact your personal physician following an emergency department visit to inform them of the circumstance of the visit and for follow-up with them and/or the need for any referrals to a consulting specialist. The emergency department will also refer you to a specialist when appropriate. This referral assures that you have the opportunity for follow-up care with a specialist. All of these measure are taken in an effort to provide you with optimal care, which includes your follow-up. Under all circumstances we always encourage you to contact your private physician who remains a resource for coordinating your care. When calling for follow-up care, please make the office aware that this follow-up is from your recent emergency room visit. If for any reason you are refused follow-up, please contact the [facility] Emergency Department at and asked to speak to the emergency department charge nurse. [facility] [address] [place] [id number] [facility] [address] [place] [id number] 1. Keep the abrasion clean and dry. Continue to monitor for signs of infection. Use Bacitracin ointment as needed 2. Tylenol and/or ibuprofen as needed for pain. 3. Follow-up with your primary care provider as we discussed. Return to the ED as needed and as discussed. - My Orders Last 24 Hours: My Active Orders 08/24/19 14:48 HEPATITIS B SURFACE AB QUANT [CHEM] Routine HEPATITIS B SURFACE AG [CHEM] Routine HEPATITIS C ANTIBODY [CHEM] Routine HIV12 AG/AB 4TH GEN [CHEM] Routine - Assessment/Plan Last 24 Hours: My Active Orders 08/24/19 14:48 HEPATITIS B SURFACE AB QUANT [CHEM] Routine HEPATITIS B SURFACE AG [CHEM] Routine HEPATITIS C ANTIBODY [CHEM] Routine HIV12 AG/AB 4TH GEN [CHEM] Routine
[2019-08-24 14:53] VITALS: BP 107/67; PULSE 82
== END 2019-08-24 15:39 | disposition home or self-care (01) ==
LOC: MW.ED 14:39
DX: S71.111A Laceration without foreign body, right thigh, initial encounter (principal); Z77.21 Contact with and (suspected) exposure to potentially hazardous body fluids; W26.8XXA Contact with other sharp object(s), not elsewhere classified, initial encounter; Y92.511 Restaurant or cafe as the place of occurrence of the external cause; Y99.0 Civilian activity done for income or pay
CPT/HCPCS: 36415; 86706; 86803; 87340; 87389; 99283